=== PATIENT | female | born 1995 | race African-American/Black ===

== ENCOUNTER 2016-06-29 19:45 | Emergency (ER) | payer MEDICAID ==
[2016-06-29 19:51] VITALS: BP 133/99; TEMP 98.8
[2016-06-29] MEDS ORDERED: LORazepam 1 MG TAB PO ONE (20:02)
[2016-06-29] MEDS ORDERED: HYOSCYAMINE SULFATE 0.125 MG TAB PO ONE (20:03)
[2016-06-29] MEDS ORDERED: LIDOCAINE 2% VISCOUS 15 ML UDCUP PO ONE (20:03)
[2016-06-29] MEDS ORDERED: MAG HYDROX/AL HYDROX/SIMETH 30 ML UDCUP PO ONE (20:03)
--- NOTE | 2016-06-29 20:05 | EDPHY ---
H & P Time Seen by Provider: 06/29/16 19:59 HPI/ROS: CHIEF COMPLAINT: "I took too much edibles" HISTORY OF PRESENT ILLNESS: 20-year-old female via private vehicle complaining of acute anxiety after consuming self-described "too much" edible THC. She is complaining of anxiety, palpitations, chest pain, dyspnea. Denies peripheral edema. Denies headache. Denies gait instability. Denies slurred speech. REVIEW OF SYSTEMS: A ten point review of systems was performed and is negative with the exception of the items mentioned in the HPI PAST MEDICAL & SURGICAL HISTORY: lipoprotein a SOCIAL HISTORY: positive marijuana use PHYSICAL EXAM (Prior to examination, patient consented to physical exam, hands were washed and my usual and customary physical exam procedures followed) 1) GENERAL: Well-developed, well-nourished, alert and oriented. Appears anxious 2) HEAD: Normocephalic, atraumatic 3) HEENT: Pupils equal, round, reactive to light bilaterally. Sclera anicteric. Nasopharynx, oropharynx, clear, no lesions. 4) NECK: Full range of motion, no meningeal signs. No bruit 5) LUNGS: Clear auscultation bilaterally, no wheezes, no rhonchi, no retractions. 6) HEART: Regular rate and rhythm, no murmur, no heave, no gallop. 7) ABDOMEN: No guarding, no rebound, no focal tenderness, negative McBurney's, negative Bonilla's, negative Rovsing's, negative peritoneal sign, 8) MUSCULOSKELETAL: Moving all extremities, no focal areas of tenderness, no obvious trauma. No peripheral edema or discoloration.Negative Homans no palpable cord 9) BACK: No CVA tenderness, no midline vertebral tenderness, no fluctuance, no step-off, no obvious trauma, no visual or palpable abnormality. 10) SKIN: No rash, no petechiae. 11) Psychiatric: Patient is oriented X 3, there is no agitation. DIFFERENTIAL DIAGNOSIS: in no particular include but limited to acute intoxicants use, pulmonary embolus, ND Smoking Status: Never smoked Constitutional: Initial Vital Signs Temperature (C) 37.1 C 06/29/16 19:47 Heart Rate 123 H 06/29/16 19:47 Respiratory Rate 18 06/29/16 19:47 Blood Pressure 133/99 H 06/29/16 19:47 O2 Sat (%) 98 06/29/16 19:47 O2 Delivery Mode Room Air Allergies/Adverse Reactions: acetazolamide [From Diamox Sequels] Allergy (Verified 04/27/15 01:03) egg [eggs] Allergy (Verified 04/27/15 01:03) topiramate [From Topamax] Allergy (Verified 04/27/15 01:15) Home Medications: Medication Instructions Recorded NK [No Known Home Meds] 04/27/15 MDM/Departure - MDM Diagnostics: PA and Lateral Chest X-ray 2142 hours History: Chest pain. Findings: Heart size and pulmonary vasculature are normal. The lungs are clear without infiltrates or effusions. There is no pneumothorax. The osseous structures are intact. Impression: Normal chest x-ray. Dictated By: Hebert Resendiz MD Images reviewed by myself Medications Given: Discontinued Medications Al Hydroxide/Mg Hydroxide (Maalox Susp) 30 ml PO ONCE ONE Stop: 06/29/16 20:04 Last Admin: 06/29/16 20:11 Dose: 30 ml Hyoscyamine Sulfate (Levsin, Hyomax-Sl) 0.25 mg PO ONCE ONE Stop: 06/29/16 20:04 Last Admin: 06/29/16 20:12 Dose: 0.25 mg Sodium Chloride (Ns) 1,000 mls @ 0 mls/hr IV ONCE ONE PRN Reason: Wide Open Stop: 06/29/16 20:50 Last Admin: 06/29/16 21:27 Dose: 1,000 mls Lidocaine (Lidocaine 2% Viscous) 15 ml PO ONCE ONE Stop: 06/29/16 20:04 Last Admin: 06/29/16 20:12 Dose: 15 ml Lorazepam (Ativan) 1 mg PO EDNOW ONE Stop: 06/29/16 20:03 Last Admin: 06/29/16 20:11 Dose: 1 mg Lorazepam (Ativan Injection) 1 mg IVP EDNOW ONE Stop: 06/29/16 20:50 Last Admin: 06/29/16 21:27 Dose: 1 mg ED Course/Re-evaluation: 9:40 p.m. I have spoke with the patient. At this time she states that she is feeling more, however her heart rate is remains in the 110s. She has a history of lipoprotein a factor and is supposed to be taking anticoagulant medication as she is at risk for thrombus. She has been off of anticoagulants for at least 5 years. She does complain of dyspnea and chest pain. Will obtain laboratory studies including D-dimer, EKG, chest x-ray and re-evaluate 10:30 p.m.: Re-evaluation, sleeping. 10:42 p.m. re-evaluation, sleeping, easily woken. Discussed with her her negative D-dimer, negative troponin, negative chest x-ray, normal sinus rhythm EKG. Her heart rate has decreased. She is breathing comfortably. I think that pulmonary embolus, ND, less than likely in this patient. She has a nonfocal neurologic exam with no subjective or objective neurologic deficits. Doubt CVA. I recommended caution with THC use in the future. I think her symptoms, which are now resolved, more than likely secondary to excessive THC consumption. Usual and customary discharge precautions and instructions provided. - Depart Disposition: Home, Routine, Self-Care Clinical Impression: Marijuana abuse Condition: Good Instructions: Cannabis Abuse (ED) Additional Instructions: Please be cautious with THC use in the future. Call 911 if you develop chest pain, shortness of breath or any other symptoms that concern you Referrals: GAMALIEL TO [Other] - 1 day without fail
[2016-06-29] MEDS ORDERED: LORazepam 2 MG/ML INJ IVP ONE (20:49)
[2016-06-29] MEDS ORDERED: NS 1,000 ML IV ONE (20:49)
[2016-06-29 21:50] LABS: % IMMATURE GRANULYOCYTES 0.3 % (0.0-1.1); ABSOLUTE IMMATURE GRANULOCYTES 0.02 10^3/uL (0.00-0.10); ADD DIFF? NO; ADD MORPH? NO; ADD SCAN? NO; ATYPICAL LYMPHOCYTE FLAG 0 (0-99); FRAGMENT RBC FLAG 0 (0-99); HEMATOCRIT 43.3 % (38.0-47.0); HEMOGLOBIN 15.3 g/dL (12.6-16.3); LEFT SHIFT FLG 0 (0-99); LIPEMIA HEMOLYSIS FLAG 90 (0-99); MEAN CELL HEMOGLOBIN CONCENTR. 35.3 g/dL (32.4-36.7); MEAN CELL VOLUME 99.1 fL (81.5-99.8); PLATELET CLUMPS FLAG 40 (0-99); PLATELET COUNT 174 10^3/uL (150-400); RED BLOOD CELL COUNT 4.37 10^6/uL (4.18-5.33); RED CELL DISTRIBUTION WIDTH 11.7 % (11.5-15.2)
[2016-06-29 21:56] LABS: ANION GAP 16 mEq/L (8-16); CALCIUM 9.3 mg/dL (8.5-10.4); CARBON DIOXIDE 18 mEq/l (22-31); CHLORIDE 104 mEq/L (97-110); CREATININE 0.7 mg/dL (0.6-1.0); GLOMERULAR FILTRATION RATE > 60; GLUCOSE 207 mg/dL (70-100); POTASSIUM 3.6 mEq/L (3.5-5.2); SODIUM 138 mEq/L (134-144)
--- NOTE | 2016-06-29 21:58 | CPEKG ---
Heart Rate: 109 RR Interval: 550 P-R Interval: 152 QRSD Interval: 98 QT Interval: 348 QTC Interval: 469 P [place]: 64 QRS [place]: 39 T Wave [place]: 5 EKG Severity - OTHERWISE NORMAL ECG - EKG Impression: SINUS TACHYCARDIA EKG Impression: Agree with above Electronically Signed By: Paras Hamilton 01-Jul-2016 18:15:07
[2016-06-29 22:08] LABS: TROPONIN I 0.025 ng/mL (0-0.034)
[2016-06-29 22:46] VITALS: PULSE 120; RESP 20; O2SAT 97
== END 2016-06-29 23:45 | disposition home or self-care (01) ==
DX: F12.10 Cannabis abuse, uncomplicated (principal)
CPT/HCPCS: 96374; J2060

== ENCOUNTER 2016-07-10 16:03 | Emergency (ER) | payer MEDICAID ==
[2016-07-10 16:11] VITALS: BP 128/78; PULSE 73; RESP 18; TEMP 97.7; O2SAT 98
--- NOTE | 2016-07-10 16:24 | EDPHY ---
H & P Stated Complaint: Thinks poss DVT; tingling in R LLE/R hand Time Seen by Provider: 07/10/16 16:24 - Personal History LMP (Females 10-55): 15-21 Days Ago Current Tetanus Diphtheria and Acellular Pertussis (TDAP): Yes - Medical/Surgical History Hx Asthma: No Hx Chronic Respiratory Disease: No Hx Diabetes: No Hx Cardiac Disease: No Hx Renal Disease: No Hx Cirrhosis: No Hx Alcoholism: No Hx HIV/AIDS: No Hx Splenectomy or Spleen Trauma: No Other PMH: Lipoprotein A, migraines - Social History Smoking Status: Never smoked Constitutional: Initial Vital Signs Temperature (C) 36.5 C 07/10/16 16:07 Heart Rate 73 07/10/16 16:07 Respiratory Rate 18 07/10/16 16:07 Blood Pressure 128/78 H 07/10/16 16:07 O2 Sat (%) 98 07/10/16 16:07 O2 Delivery Mode Room Air Allergies/Adverse Reactions: acetazolamide [From Diamox Sequels] Allergy (Verified 07/10/16 16:11) egg [eggs] Allergy (Verified 07/10/16 16:11) topiramate [From Topamax] Allergy (Verified 07/10/16 16:11) Home Medications: Medication Instructions Recorded NK [No Known Home Meds] 04/27/15 Medical Decision Making ED Course/Re-evaluation: CHIEF COMPLAINT: Right calf pain HISTORY OF PRESENT ILLNESS: The patient is a 20 y/o female arriving with her friend at the [facility] with concern for a clot in her right calf. She reports she was recently evaluated in the ED for heart palpitations after using marijuana edibles. Due to a history of elevated lipoprotein, she is concerned she may have a DVT. She denies chest pain or shortness of breath. She has no history of DVT or PE and denies recent travel or long sedentary periods. She has been able to walk normally and denies leg weakness or other complaints. REVIEW OF SYSTEMS: A 10 point review of systems was performed and is negative with the exception of the elements mentioned in the history of present illness. PHYSICAL EXAM: HR, BP, O2 Sat, RR. Temp noted General Appearance: Alert, well hydrated, appropriate, and non-toxic appearing. Head: Atraumatic without scalp tenderness or obvious injury Eyes: Pupils equal, round, reactive to light and accommodation, EOMI, no trauma , no injection. Ears: Clear bilaterally, no perforation, normal landmarks Nose: Atraumatic, no rhinorrhea, clear. Throat: There is no erythema or exudates, no lesions, normal tonsils, mucus membranes moist. Neck: Supple, nontender, no lymphadenopathy. Respiratory: No retractions, no distress, no wheezes, and no accessory muscle use. Lungs are clear to auscultation bilaterally. Cardiovascular: Regular rate and rhythm, no murmurs, rubs, or gallops. Dorsalis pedis pulses intact. Good capillary refill all extremities. Gastrointestinal: Abdomen is soft, nontender, non-distended, no masses, no rebound, no guarding, no peritoneal signs. Musculoskeletal: Normal active ROM of all extremities, atraumatic. Right calf shows no tenderness, erythema, tenseness, or calf asymmetry Neurological: Alert, appropriate, and interactive. The patient has normal DTRs and non-focal cranial nerves, motor, sensory, and cerebellar exam. Skin: No rashes, good turgor, no nodules on palpation. 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 [employer] student DIAGNOSTICS/PROCEDURES/CRITICAL CARE TIME: I viewed the images myself on the PACS system. DIFFERENTIAL DIAGNOSIS: The differential diagnosis for the patient's leg pain included but was not limited to hypoalbuminemia, congestive heart failure, cor pulmonale, venous stasis, trauma, and DVT. MEDICAL DECISION MAKING: This is a 20 y/o female presenting with right calf pain for the last couple days. She has an elevated lipoprotein and was told this could lead to clots, which she interpreted as increased risk of DVTs. When she discussed her symptoms with [facility], they referred her to the ED for DVT rule out. Though she describes right calf pain and swelling, on exam she has no tenderness, erythema, tenseness, or calf asymmetry making me less suspicious of a DVT. She denies any systemic symptoms and DVT or PE risk factors. Plan for US of her right lower extremity to rule out DVT. 1715: US is negative for DVT per Dr. Whelan, radiologist. I reevaluated the patient and discussed these results with her. I answered all her questions. It' s more likely her pain is due to a musculoskeletal etiology and I recommended standard care instructions including OTC NSAIDs and ice compresses. I gave strict return precautions and recommended following up with a belt polisher regarding her elevated lipoprotein as she is not currently on any medical therapy for this. She agrees with plan. Departure - Departure Disposition: Home, Routine, Self-Care Clinical Impression: Right calf pain Condition: Good Instructions: Leg Pain (ED) Additional Instructions: 1. Use ibuprofen or Tylenol as directed on the packaging if needed for pain for the next 2-3 days. You can also try applying ice or heat to sore areas. 2. Follow up with Dr. Amador, belt polisher, to discuss therapies for your elevated lipoprotein. 3. Return to the ED for chest pain, shortness of breath, dramatic increase in pain or swelling of your leg, or other worsening of condition. Referrals: GAMALIEL TO [Other] - As per Instructions Jae Amador MD [Medical Doctor] - As per Instructions Report Scribed for: Mk Florentino Report Scribed by: Kassandra Stapleton Date of Report: 07/10/16 Time of Report: 17:12
== END 2016-07-10 17:05 | disposition home or self-care (01) ==
DX: M79.604 Pain in right leg (principal)

== ENCOUNTER 2017-10-01 02:07 | Emergency (ER) | payer MEDICAID ==
[2017-10-01 02:31] VITALS: BP 127/91
--- NOTE | 2017-10-01 02:35 | EDPHY ---
H & P Stated Complaint: "I think i have a spider in my ear" Time Seen by Provider: 10/01/17 02:32 HPI/ROS: Chief Complaint: Possible spider in ear HPI: 21-year-old female woke this morning with the sensation of crackling in her ear. She thinks she may have a spider in her ear. She flushed it appy did not see any insects. She is complaining of disc sensation of fullness in her ear. She has had recent mild nasal congestion ROS: 10 point Review of Systems is negative except as noted in the HPI. PMH: Denies Social History: [No] smoking, [no] alcohol, [ no recreational drug use] Family History: [non-contributory] Physical Exam: General: Awake, alert, no acute distress Ears: Right ear contains no foreign body. There is minimal effusion. There is no erythema. There is no material in the external auditory canal. Left ear is normal. Skin: No rash - Personal History LMP (Females 10-55): 8-14 Days Ago Current Tetanus Diphtheria and Acellular Pertussis (TDAP): Yes - Medical/Surgical History Hx Asthma: No Hx Chronic Respiratory Disease: No Hx Diabetes: No Hx Cardiac Disease: No Hx Renal Disease: No Hx Cirrhosis: No Hx Alcoholism: No Hx HIV/AIDS: No Hx Splenectomy or Spleen Trauma: No Other PMH: Lipoprotein A, migraines - Social History Smoking Status: Never smoked Constitutional: Initial Vital Signs Temperature (C) 36.7 C 10/01/17 02:30 Heart Rate 89 10/01/17 02:30 Respiratory Rate 18 10/01/17 02:30 Blood Pressure 127/91 H 10/01/17 02:30 O2 Sat (%) 97 10/01/17 02:30 O2 Delivery Mode Room Air Allergies/Adverse Reactions: acetazolamide [From Diamox Sequels] Allergy (Verified 10/01/17 02:30) egg [eggs] Allergy (Verified 10/01/17 02:30) topiramate [From Topamax] Allergy (Verified 10/01/17 02:30) Home Medications: Medication Instructions Recorded NK [No Known Home Meds] 04/27/15 Departure - Departure Disposition: Home, Routine, Self-Care Clinical Impression: Ear pain Condition: Good Instructions: Earache (ED) Additional Instructions: Follow up at [facility] in 2-3 days for further evaluation. You may take [id number] decongestants to help your ears to drain. Referrals: NONE *PRIMARY CARE P,. [Primary Care Provider] - As per Instructions
== END 2017-10-01 02:52 | disposition home or self-care (01) ==
DX: H92.01 Otalgia, right ear (principal)

== ENCOUNTER 2017-11-29 17:09 | Emergency (ER) | payer MEDICAID ==
[2017-11-29] MEDS ORDERED: methylPREDNISolone SOD SUCC 125 MG/2 ML VIAL IVP ONE (17:49)
--- NOTE | 2017-11-29 17:53 | EDPHY ---
H & P Stated Complaint: Had eggs in food which she promptly spit out;used epi pen; feels itchy Time Seen by Provider: 11/29/17 17:21 HPI/ROS: CHIEF COMPLAINT: Allergic reaction HISTORY OF PRESENT ILLNESS: 22-year-old female with known severe egg allergy presents with an allergic reaction. She placed food from a restaurant in her mouth, realized that it was not her food order, and spit it out. Did not swallow the food, which was cheesecake (containing eggs). Immediate onset of generalized hives and a tingling sensation in her throat and tongue. She took Benadryl 25 mg orally and then used her EpiPen. She continues to have tingling in her throat and tongue. The hives are resolving. No dizziness or shortness of breath. REVIEW OF SYSTEMS: complete 10 point ROS negative except at noted in the HPI - Personal History Current Tetanus Diphtheria and Acellular Pertussis (TDAP): Yes - Medical/Surgical History Hx Asthma: No Hx Chronic Respiratory Disease: No Hx Diabetes: No Hx Cardiac Disease: No Hx Renal Disease: No Hx Cirrhosis: No Hx Alcoholism: No Hx HIV/AIDS: No Hx Splenectomy or Spleen Trauma: No Other PMH: Lipoprotein A, migraines, - Social History Smoking Status: Never smoked Additional Social History: Single - Physical Exam Exam: General Appearance: Alert, pleasant Eyes: Pupils equal and round, no periorbital swelling ENT, Mouth: Mucous membranes moist, no oral swelling or erythema Neck: Normal inspection, no stridor Respiratory: Lungs are clear to auscultation, no wheezing Cardiovascular: Regular rate and rhythm Neurological: A&O, nonfocal, normal gait Skin: Scattered hives Extremities: No swelling Psychiatric: Mood and affect normal Constitutional: Initial Vital Signs Temperature (C) 36.7 C 11/29/17 17:15 Heart Rate 94 11/29/17 17:15 Respiratory Rate 18 11/29/17 17:15 Blood Pressure 136/81 H 11/29/17 17:15 O2 Sat (%) 96 11/29/17 17:15 O2 Delivery Mode Room Air Allergies/Adverse Reactions: egg [eggs] Allergy (Intermediate, Verified 11/29/17 17:14) Hives acetazolamide [From Diamox Sequels] Allergy (Verified 11/09/17 18:41) cheese Allergy (Verified 11/09/17 18:41) topiramate [From Topamax] Allergy (Verified 11/09/17 18:41) Home Medications: Medication Instructions Recorded Effexor Xr 11/09/17 Epipen 0.3 MG 11/09/17 EPINEPHrine [Epipen 0.3 MG] 0.3 mg IM ONCE #2 syr 11/29/17 predniSONE 60 mg PO DAILY #9 tab 11/29/17 Medical Decision Making ED Course/Re-evaluation: This pt presents with anaphylaxis, symptoms resolving after EpiPen and Benadryl. However she continues to have tingling in her throat and tongue. Solu-Medrol 125 mg IV given. Will observe. 1830: Feels much better, wants to go home. Itching and tingling have resolved. Lungs are clear to auscultation and vital signs are stable. Warning signs discussed. Differential Diagnosis: Differential diagnosis includes though it is not limited to laryngeal edema, bronchospasm, hypotension, angioedema. - Data Points Medications Given: Discontinued Medications Methylprednisolone Sodium Succinate (Solu-Medrol) 125 mg IVP EDNOW ONE Stop: 11/29/17 17:50 Last Admin: 11/29/17 18:02 Dose: 125 mg Departure - Departure Disposition: Home, Routine, Self-Care Clinical Impression: Acute anaphylaxis Qualifiers: Encounter type: initial encounter Qualified Code(s): T78.2XXA - Anaphylactic shock, unspecified, initial encounter Condition: Good Instructions: Anaphylaxis (ED) Additional Instructions: Take Claritin in the morning and Benadryl at night for 3 days. Referrals: Shaila Early MD [Medical Doctor] - As per Instructions Prescriptions: EPINEPHrine [Epipen 0.3 MG] 0.3 mg IM ONCE #2 syr predniSONE 60 mg PO DAILY #9 tab
[2017-11-29 18:46] VITALS: BP 113/74
== END 2017-11-29 18:46 | disposition home or self-care (01) ==
DX: T78.08XA Anaphylactic reaction due to eggs, initial encounter (principal)
CPT/HCPCS: 96374; J2930

== ENCOUNTER 2018-01-16 00:48 | Emergency (ER) | payer MEDICAID ==
[2018-01-16] MEDS ORDERED: ONDANSETRON 4 MG/2 ML VIAL IVP ONE (00:50)
[2018-01-16] MEDS ORDERED: NS 1,000 ML IV ONE (00:50)
--- NOTE | 2018-01-16 00:52 | EDPHY ---
H & P Time Seen by Provider: 01/16/18 00:51 HPI/ROS: HPI CHIEF COMPLAINT: Alcohol Intoxication HISTORY OF PRESENT ILLNESS: 22-year-old female, history of migraine headaches, presents emergency room acute alcohol intoxication, as well as marijuana intoxication. Patient was at a constitution party. Started vomiting. Unable to ambulate. Presents emergency room by EMS. Smells of alcohol. Slurring her speech. States she feels nauseous. Past Medical History: Anxiety, depression, migraine headaches Past Surgical History: Denies Social History: Alcohol this evening. Marijuana this evening. Family History: Noncontributory. ROS REVIEW OF SYSTEMS: 10 Systems were reviewed and negative with the exception of the elements mentioned in the history of present illness. Exam Constitutional Intoxicated, triage nursing summary reviewed, vital signs reviewed, Sleepy, smells of alcohol Eyes normal conjunctivae and sclera, horizontal beating nystagmus consistent acute alcohol intoxication, otherwise pupils equal and react to light HENT normal inspection, atraumatic, moist mucus membranes, no epistaxis, neck supple/ no meningismus, no raccoon eyes. Respiratory clear to auscultation bilaterally, normal breath sounds, no respiratory distress, no wheezing. Cardiovascular rate normal, regular rhythm, no murmur, no edema, distal pulses normal. Gastrointestinal soft, non-tender, no rebound, no guarding, normal bowel sounds, no distension, no pulsatile mass. Genitourinary no CVA tenderness. Musculoskeletal no midline vertebral tenderness, full range of motion, no calf swelling, no tenderness of extremities, no meningismus, good pulses, neurovascularly intact. Skin pink, warm, & dry, no rash, skin atraumatic. Neurologic sleepy, intoxicated with alcohol,, alert and oriented x 3, AAOx3, moves all 4 extremities equally, motor intact, sensory intact, CN II-XII intact , , normal vision, normal speech. Psychiatric normal mood/affect. Heme/Lymph/Immune no lymphadenopathy. Differential Diagnosis: Includes but is not limited to in a particular order acute alcohol intoxication, alcohol abuse, dehydration, electrolyte abnormality , nausea vomiting from acute alcohol intoxication Medical Decision Making: Plan for this patient IV establishment IV fluid bolus , Zofran for nausea vomiting, check basic electrolytes, serum alcohol level. Monitor for worsening condition monitor for sobriety. Re-evaluation: Serum alcohol level 156. 0724: Patient was highly intoxicated with alcohol. She is now clinically sober. Answers questions appropriately acting appropriately. Plan for discharge. Ambulated well. No complaints. Source: Patient, EMS - Medical/Surgical History Hx Asthma: No Hx Chronic Respiratory Disease: No Hx Diabetes: No Hx Cardiac Disease: No Hx Renal Disease: No Hx Cirrhosis: No Hx Alcoholism: No Hx HIV/AIDS: No Hx Splenectomy or Spleen Trauma: No Other PMH: Lipoprotein A, migraines, - Social History Smoking Status: Never smoked Constitutional: Initial Vital Signs Temperature (C) 36.4 C 01/16/18 00:49 Heart Rate 90 01/16/18 00:49 Respiratory Rate 16 01/16/18 00:49 Blood Pressure 115/74 01/16/18 00:49 O2 Sat (%) 100 01/16/18 00:49 O2 Delivery Mode Room Air Allergies/Adverse Reactions: egg [eggs] Allergy (Intermediate, Verified 11/29/17 17:14) Hives acetazolamide [From Diamox Sequels] Allergy (Verified 11/09/17 18:41) cheese Allergy (Verified 11/09/17 18:41) topiramate [From Topamax] Allergy (Verified 11/09/17 18:41) Home Medications: Medication Instructions Recorded Effexor Xr 11/09/17 Epipen 0.3 MG 11/09/17 EPINEPHrine [Epipen 0.3 MG] 0.3 mg IM ONCE #2 syr 11/29/17 predniSONE 60 mg PO DAILY #9 tab 11/29/17 Medical Decision Making - Data Points Laboratory Results: Laboratory Results 01/16/18 01:03 01/16/18 01:50 01/16/18 01/16/18 01/16/18 01:50 01:50 01:03 WBC RBC Hgb Hct MCV MCH MCHC RDW Plt Count MPV Neut % (Auto) Lymph % (Auto) [place] % (Auto) Eos % (Auto) Baso % (Auto) Nucleat RBC Rel Count Absolute Neuts (auto) Absolute Lymphs (auto) Absolute Monos (auto) Absolute Eos (auto) Absolute Basos (auto) Absolute Nucleated RBC Immature Gran % Immature Gran # Sodium 141 mEq/L mEq/L 142 mEq/L mEq/L (135-145) (135-145) Potassium 3.4 mEq/L mEq/L 2.9 mEq/L L mEq/L (3.3-5.0) (3.3-5.0) Chloride 111 mEq/L H mEq/L 107 mEq/L mEq/L (97-110) (97-110) Carbon Dioxide 18 mEq/l L mEq/l 17 mEq/l L mEq/l (22-31) (22-31) Anion Gap 12 mEq/L mEq/L 18 mEq/L H mEq/L (6-14) (6-14) BUN 7 mg/dL mg/dL 8 mg/dL mg/dL (7-23) (7-23) Creatinine 0.6 mg/dL mg/dL 0.8 mg/dL mg/dL (0.6-1.0) (0.6-1.0) Estimated GFR > 60 > 60 Glucose 104 mg/dL H mg/dL 126 mg/dL H mg/dL (70-100) (70-100) Calcium 8.4 mg/dL L mg/dL 9.5 mg/dL mg/dL (8.5-10.4) (8.5-10.4) Urine Color YELLOW Urine Appearance HAZY Urine pH 5.0 (5.0-7.5) Ur Specific [place] 1.016 (1.002-1.030) Urine Protein NEGATIVE (NEGATIVE) Urine Ketones TRACE H (NEGATIVE) Urine Blood NEGATIVE (NEGATIVE) Urine Nitrate NEGATIVE (NEGATIVE) Urine Bilirubin NEGATIVE (NEGATIVE) Urine Urobilinogen NEGATIVE EU EU (0.2-1.0) Ur Leukocyte Esterase NEGATIVE (NEGATIVE) Urine Glucose NEGATIVE (NEGATIVE) Ethyl Alcohol 156 mg/dL H mg/dL (0-10) 01/16/18 01:03 WBC 6.57 10^3/uL 10^3/uL (3.80-9.50) RBC 4.15 10^6/uL L 10^6/uL (4.18-5.33) Hgb 14.7 g/dL g/dL (12.6-16.3) Hct 41.9 % % (38.0-47.0) MCV 101.0 fL H fL (81.5-99.8) MCH 35.4 pg H pg (27.9-34.1) MCHC 35.1 g/dL g/dL (32.4-36.7) RDW 11.9 % % (11.5-15.2) Plt Count 181 10^3/uL 10^3/uL (150-400) MPV 11.1 fL fL (8.7-11.7) Neut % (Auto) 28.6 % L % (39.3-74.2) Lymph % (Auto) 60.1 % H % (15.0-45.0) [place] % (Auto) 9.3 % % (4.5-13.0) Eos % (Auto) 1.2 % % (0.6-7.6) Baso % (Auto) 0.5 % % (0.3-1.7) Nucleat RBC Rel Count 0.0 % % (0.0-0.2) Absolute Neuts (auto) 1.88 10^3/uL 10^3/uL (1.70-6.50) Absolute Lymphs (auto) 3.95 10^3/uL H 10^3/uL (1.00-3.00) Absolute Monos (auto) 0.61 10^3/uL 10^3/uL (0.30-0.80) Absolute Eos (auto) 0.08 10^3/uL 10^3/uL (0.03-0.40) Absolute Basos (auto) 0.03 10^3/uL 10^3/uL (0.02-0.10) Absolute Nucleated RBC 0.00 10^3/uL 10^3/uL (0-0.01) Immature Gran % 0.3 % % (0.0-1.1) Immature Gran # 0.02 10^3/uL 10^3/uL (0.00-0.10) Sodium Potassium Chloride Carbon Dioxide Anion Gap BUN Creatinine Estimated GFR Glucose Calcium Urine Color Urine Appearance Urine pH Ur Specific [place] Urine Protein Urine Ketones Urine Blood Urine Nitrate Urine Bilirubin Urine Urobilinogen Ur Leukocyte Esterase Urine Glucose Ethyl Alcohol Medications Given: Discontinued Medications Haloperidol Lactate (Haldol Injection) 2.5 mg IVP EDNOW ONE Stop: 01/16/18 01:21 Last Admin: 01/16/18 01:21 Dose: 2.5 mg Sodium Chloride (Ns) 1,000 mls @ 0 mls/hr IV EDNOW ONE; Wide Open PRN Reason: Protocol Stop: 01/16/18 00:51 Last Admin: 01/16/18 00:59 Dose: 1,000 mls Lorazepam (Ativan Injection) 1 mg IVP EDNOW ONE Stop: 01/16/18 02:56 Last Admin: 01/16/18 02:55 Dose: 1 mg Ondansetron HCl (Zofran) 4 mg IVP EDNOW ONE Stop: 01/16/18 00:51 Last Admin: 01/16/18 01:00 Dose: 4 mg Departure - Departure Disposition: Home, Routine, Self-Care Clinical Impression: Alcoholic intoxication Qualifiers: Complication of substance-induced condition: uncomplicated Qualified Code(s): F10.920 - Alcohol use, unspecified with intoxication, uncomplicated Condition: Good Instructions: Alcohol Intoxication (ED), Abuse of Alcohol (ED) Referrals: Patient,NotPresent [Unknown] - As per Instructions
[2018-01-16 01:12] LABS: PLATELET COUNT 181 10^3/uL (150-400)
[2018-01-16] MEDS ORDERED: HALOPERIDOL LACT 5 MG/ML INJ ONE (01:18)
[2018-01-16] MEDS ORDERED: HALOPERIDOL LACT 5 MG/ML INJ IVP ONE (01:20)
[2018-01-16] MEDS ORDERED: LORazepam 2 MG/ML INJ ONE (02:54)
[2018-01-16] MEDS ORDERED: LORazepam 2 MG/ML INJ IVP ONE (02:55)
[2018-01-16 07:37] VITALS: BP 111/66
== END 2018-01-16 08:04 | disposition home or self-care (01) ==
LOC: EDUNIT#
DX: F10.920 Alcohol use, unspecified with intoxication, uncomplicated (principal); Y90.6 Blood alcohol level of 120-199 mg/100 ml; E86.9 Volume depletion, unspecified
CPT/HCPCS: 96374; G0480; J1630; J2060; J2405

== ENCOUNTER 2018-05-11 17:28 | Emergency (ER) | payer MEDICAID ==
--- NOTE | 2018-05-11 17:58 | EDPHY ---
General - History Smoking Status: Never smoked Time Seen by Provider: 05/11/18 17:58 Narrative: CLINICAL IMPRESSION: Nausea, vomiting, right lower quadrant pain ASSESSMENT/PLAN: Patient is a 22-year-old female with a significant history of depression who presents to the emergency department with 8 days of nausea, generalized abdominal pain now localizing to the right lower quadrant and a single episode of emesis today. Patient is afebrile, she is in no acute distress and not toxic -appearing. Her abdomen was soft and nondistended, generalized lower abdominal tenderness to palpation however most tender in the right lower quadrant. CBC revealed no evidence of leukocytosis. Her vital signs were reviewed and there was no evidence of sepsis or serious bacterial illness. BMP grossly unremarkable. Lipase and hepatic panel without evidence of acute pancreatitis, acute hepatitis or acute hepatobiliary obstruction. negative. Pelvic ultrasound and abdominal ultrasound revealed no evidence of cystic mass, TOA or torsion; unable to visualize the appendix. UA without evidence of infection. CT abdomen and pelvis revealed normal appendix, complex trace fluid in the pelvis possibly resultant of recent ruptured ovarian cyst; no other acute findings. History and physical examination is most consistent with right lower quadrant pain, query recent ruptured ovarian cyst as etiology. There were no clinical findings to suggest appendicitis, cholecystitis, kidney stone, pancreatitis, pyelonephritis, perforated viscus, diverticulitis, hernia, AAA, mesenteric ischemia, or additional emergent intra-abdominal process. negative rules out ectopic . No pelvic complaints to suggest TOA, PID or ovarian torsion. She was given IV fluids and Toradol with improvement of her symptoms. On repeat examination the patient is well-appearing, her abdomen was soft with mild tenderness to palpation in the right lower quadrant, no peritoneal signs or evidence of surgical abdomen. The patient is well established at [facility] and understands the importance of close follow-up. Strict return precautions discussed- she will return for increased or unmanageable pain, new site or character of pain, fever, persistent nausea and vomiting, decreased urine output or other signs of dehydration or for any other new, worsening or worrisome symptoms. Patient and her mother both verbalized understanding and they are in agreement with this plan. DIFFERENTIAL DX: Abdominal pain in a female including but not limited to ovarian cyst, pelvic inflammatory disease, ovarian torsion, urinary tract infection, and appendicitis. ED COURSE: 1905: Case discussed with Dr. Membreno. CHIEF COMPLAINT: Nausea, vomiting, right lower quadrant pain HPI: Patient is a 22-year-old female with significant history of depression who presents to the emergency department with 8 days of nausea, generalized abdominal pain which is localized to the right lower quadrant as well as a single episode of emesis today. Patient reports last Thursday she started to develop some generalized abdominal pain and nausea, it was constant and nothing relieved it. She was seen and evaluated at [facility] on Thursday, baseline laboratory studies reportedly unremarkable. Patient has continued to have abdominal pain which is now localizing to the right lower quadrant and had a single episode of emesis today. She has also been experiencing intermittent night sweats and chills. She has been taking her Zofran intermittently, complains of mild constipation however had a normal bowel movement this morning. She denies any chest pain, shortness of breath or hematemesis. Last menstrual period was normal in approximately 3 weeks ago. She is sexually active however it has been several months, 1 partner. No concern for STI, denies any vaginal discharge or vaginal bleeding at this time. She denies any urinary symptoms to include dysuria, hematuria or frequency. PMH: Depression Pertinent Past Surgical History: Denies Family History: Noncontributory Social History: Denies illicit drug use, occasional alcohol, denies cigarette smoking REVIEW OF SYSTEMS: All other systems negative Constitutional: Chills, decreased appetite. Eyes: No discharge, vision change ENT: No sore throat, congestion, ear pain. Cardiovascular: No chest pain, no palpitations. Respiratory: No cough, no shortness of breath. Gastrointestinal: Nausea, vomiting, right lower quadrant pain. Genitourinary: No hematuria, dysuria, flank pain. Musculoskeletal: No back pain, joint swelling, joint pain, myalgias. Skin: No rashes, color change. Neurological: No headache, dizziness, weakness. PHYSICAL EXAM: General Appearance: Well-developed, no acute distress and not toxic-appearing. HENT: Normocephalic, atraumatic. Bilateral external ears are normal. Bilateral tympanic membranes are normal with pearly oleary reflex. Nares are clear, mucosa is pink. Oropharynx is clear, uvula is midline. There is no tonsillar enlargement or exudate. The dentition is normal.] Eyes: PERRLA, no acute vision change, nystagmus, swelling, discharge, pain or photosensitivity. Conjunctiva pink, no pallor or injection Neck: Supple, nontender, no lymphadenopathy, no midline pain, FROM, no meningismus. Respiratory: There are no retractions, lungs are clear to auscultation. Cardiac: Regular rate and rhythm, no murmurs or gallops. Gastrointestinal: Patient's abdomen is soft and nondistended. She has generalized lower abdominal tenderness however is most tender in the right lower quadrant without rebound or guarding. Negative Rovsing's, negative Bonilla sign. Bowel sounds normal, no masses/hernia, no focal peritoneal findings.] Neurological: Alert and oriented x 3, CN 2-12 grossly intact, normal gait no ataxia, DTR's intact, normal sensation and strength Skin: Warm, dry, no rashes, no nodules on palpation. Musculoskeletal: Extremities are symmetrical, full range of motion, no tenderness, deformity, swelling, or erythema. Psychiatric: Patient is oriented X 3, there is no agitation. MEDICAL DECISION MAKING: Patient was seen independently. Secondary supervising physician at time of evaluation was Dr. Membreno, she did not evaluate this patient. Diagnosis: Nausea, vomiting, right lower quadrant pain. New, requires workup Summary: See Assessment and Plan for summary of ED visit Clinical lab tests: ordered / reviewed. Independent visualization of images, tracing, or specimens: Yes. Decision to obtain medical records or history from someone other than the patient: Yes Review / Summarize previous medical records: Yes Discussed patient with another provider: Yes Patient Progress: Stable, discharge. (Josee Li) - Diagnostics Imaging Results: Imaging Impressions Abdomen Ultrasound 05/11/18 18:18 Impression: 1. There is a loop of bowel within the right lower quadrant measuring up to 1.2 cm. On some images, it appears to be blind ending, though it is unclear if this represents an appendix as a connection to cecum could not be found. Correlation with physical examination and laboratory values recommended. 2. Small amount of free fluid in the pelvis. Otherwise, unremarkable pelvic ultrasound. Findings and recommendations discussed with CHRISTOPHE Dickens at 4 hour, 05/11. Pelvic/Renal Ultrasound 05/11/18 18:18 Impression: 1. There is a loop of bowel within the right lower quadrant measuring up to 1.2 cm. On some images, it appears to be blind ending, though it is unclear if this represents an appendix as a connection to cecum could not be found. Correlation with physical examination and laboratory values recommended. 2. Small amount of free fluid in the pelvis. Otherwise, unremarkable pelvic ultrasound. Findings and recommendations discussed with CHRISTOPHE Dickens at 1944 hour, 05/11. Abdomen CT 05/11/18 19:44 Impression: 1. No evidence of acute appendicitis. 2. Mildly complex trace fluid within the pelvis, possibly related to a ruptured cyst or physiologic. 3. Endometrial thickening, as can be seen with menstruation. Findings and recommendations discussed with CHRISTOPHE Dickens at 2020 hour, 05/11. Discussion: The patient was evaluated and managed by the Physician Petrologist. I discussed the patient's presentation and course with the midlevel provider with them and agree with the evaluation. My co-signature indicates that I have reviewed this chart and I agree with the findings and plan of care as documented. I am the secondary supervising physician. (Angela Membreno) - Objective Vital Signs: Initial Vital Signs Temperature (C) 36.8 C 05/11/18 17:36 Heart Rate 87 05/11/18 17:36 Respiratory Rate 16 05/11/18 17:36 Blood Pressure 119/64 05/11/18 17:36 O2 Sat (%) 98 05/11/18 17:36 O2 Delivery Mode Room Air Allergies/Adverse Reactions: egg [eggs] Allergy (Intermediate, Verified 05/11/18 17:35) Hives acetazolamide [From Diamox Sequels] Allergy (Verified 05/11/18 17:35) cheese Allergy (Verified 05/11/18 17:35) topiramate [From Topamax] Allergy (Verified 05/11/18 17:35) Home Medications: Medication Instructions Recorded Effexor Xr 11/09/17 Epipen 0.3 MG 11/09/17 EPINEPHrine [Epipen 0.3 MG] 0.3 mg IM ONCE #2 syr 11/29/17 predniSONE 60 mg PO DAILY #9 tab 11/29/17 Laboratory Results: Laboratory Results 05/11/18 18:05 05/11/18 18:05 05/11/18 05/11/18 05/11/18 19:30 18:05 18:05 WBC RBC Hgb Hct MCV MCH MCHC RDW Plt Count MPV Neut % (Auto) Lymph % (Auto) [place] % (Auto) Eos % (Auto) Baso % (Auto) Nucleat RBC Rel Count Absolute Neuts (auto) Absolute Lymphs (auto) Absolute Monos (auto) Absolute Eos (auto) Absolute Basos (auto) Absolute Nucleated RBC Immature Gran % Immature Gran # Sodium 140 mEq/L mEq/L (135-145) Potassium 3.9 mEq/L mEq/L (3.5-5.2) Chloride 105 mEq/L mEq/L (97-110) Carbon Dioxide 25 mEq/l mEq/l (22-31) Anion Gap 10 mEq/L mEq/L (6-14) BUN 8 mg/dL mg/dL (7-23) Creatinine 0.7 mg/dL mg/dL (0.6-1.0) Estimated GFR > 60 Glucose 69 mg/dL L mg/dL (70-100) Calcium 9.6 mg/dL mg/dL (8.5-10.4) Total Bilirubin 0.5 mg/dL mg/dL (0.1-1.4) Conjugated Bilirubin 0.2 mg/dL mg/dL (0.0-0.5) Unconjugated Bilirubin 0.3 mg/dL mg/dL (0.0-1.1) AST 27 IU/L IU/L (14-46) ALT 20 IU/L IU/L (9-52) Alkaline Phosphatase 55 IU/L IU/L (38-126) Total Protein 7.7 g/dL g/dL (6.3-8.2) Albumin 5.0 g/dL g/dL (3.5-5.0) Lipase 129 IU/L IU/L (23-300) Beta HCG, Qual NEGATIVE Urine RBC NONE SEEN /hpf /hpf (0-3) Urine WBC 1-3 /hpf /hpf (0-3) Ur Epithelial Cells TRACE /lpf /lpf (NONE-1+) Urine Mucus TRACE /lpf /lpf (NONE-1+) 05/11/18 18:05 WBC 4.54 10^3/uL 10^3/uL (3.80-9.50) RBC 4.70 10^6/uL 10^6/uL (4.18-5.33) Hgb 16.1 g/dL g/dL (12.6-16.3) Hct 46.7 % % (38.0-47.0) MCV 99.4 fL fL (81.5-99.8) MCH 34.3 pg H pg (27.9-34.1) MCHC 34.5 g/dL g/dL (32.4-36.7) RDW 12.3 % % (11.5-15.2) Plt Count 181 10^3/uL 10^3/uL (150-400) MPV 10.9 fL fL (8.7-11.7) Neut % (Auto) 78.7 % H % (39.3-74.2) Lymph % (Auto) 16.3 % % (15.0-45.0) [place] % (Auto) 4.2 % L % (4.5-13.0) Eos % (Auto) 0.4 % L % (0.6-7.6) Baso % (Auto) 0.2 % L % (0.3-1.7) Nucleat RBC Rel Count 0.0 % % (0.0-0.2) Absolute Neuts (auto) 3.57 10^3/uL 10^3/uL (1.70-6.50) Absolute Lymphs (auto) 0.74 10^3/uL L 10^3/uL (1.00-3.00) Absolute Monos (auto) 0.19 10^3/uL L 10^3/uL (0.30-0.80) Absolute Eos (auto) 0.02 10^3/uL L 10^3/uL (0.03-0.40) Absolute Basos (auto) 0.01 10^3/uL L 10^3/uL (0.02-0.10) Absolute Nucleated RBC 0.00 10^3/uL 10^3/uL (0-0.01) Immature Gran % 0.2 % % (0.0-1.1) Immature Gran # 0.01 10^3/uL 10^3/uL (0.00-0.10) Sodium Potassium Chloride Carbon Dioxide Anion Gap BUN Creatinine Estimated GFR Glucose Calcium Total Bilirubin Conjugated Bilirubin Unconjugated Bilirubin AST ALT Alkaline Phosphatase Total Protein Albumin Lipase Beta HCG, Qual Urine RBC Urine WBC Ur Epithelial Cells Urine Mucus Medications Given: Discontinued Medications Sodium Chloride (Ns) 1,000 mls @ 0 mls/hr IV EDNOW ONE; Wide Open PRN Reason: Protocol Stop: 05/11/18 18:19 Last Admin: 05/11/18 18:47 Dose: 1,000 mls Ketorolac Tromethamine (Toradol) 30 mg IVP EDNOW ONE Stop: 05/11/18 21:08 Last Admin: 05/11/18 21:14 Dose: 30 mg Ondansetron HCl (Zofran) 4 mg IVP EDNOW ONE Stop: 05/11/18 18:19 Last Admin: 05/11/18 18:48 Dose: 4 mg Departure - Departure Disposition: Home, Routine, Self-Care Clinical Impression: RLQ abdominal pain Condition: Good Instructions: Abdominal Pain (ED) Additional Instructions: DISCHARGE INSTRUCTIONS FROM YOUR DOCTOR Thank you for visiting our emergency department today. Please keep in mind that discharge from the emergency department does not mean that there is nothing wrong - it simply means that we have not identified an emergency condition that requires further evaluation or treatment in the hospital. You should always plan to follow up with primary care for re-evaluation of your condition in the next 2-3 days. Rest, push non-diuretic, non-caffeinated fluids, clear liquid diet, then a BRAT diet (bananas, rice, applesauce, toast), then slowly advance diet to normal. Attempt small frequent meals. Zofran as prescribed as needed for any recurrent nausea and/or vomiting. For pain control: You may take Tylenol, I recommend 500-1000 mg every 6-8 hours as needed. Take with food and a full glass of water. Stop taking if this is upsetting her stomach. Do not exceed 4000 mg in a 24 hr period. You may also take ibuprofen, recommend 400 mg every 6 hr. Take with food and a full glass of water. Stop taking if this upsets her stomach. Do not exceed 2400 mg in a 24 hr period. Do not take any of these type medications until tomorrow as he received Toradol in the emergency department. Schedule a follow-up appointment with your primary care physician in the next 1- 2 days for re-evaluation. Bring a copy of your test results with you to that appointment. Return for increased or unmanageable pain, new site or character of pain, flank pain, groin pain, pelvic pain, development of fever, chills, recurrent vomiting , vomiting blood or coffee grounds, diarrhea, constipation, bloody stools, black tarry stools, burning or pain with urination, bloody urine, inability to urinate, decreased urine output or other signs of dehydration, dizziness, weakness, fainting, difficulty breathing or swallowing, chest pain, or for any other new, worsening or worrisome symptoms. People present with illnesses and injuries in different ways, and it is always possible that we have missed something. You may always return for re-evaluation if symptoms worsen or if they are not improving or if you develop new/different symptoms. Again, thank you for choosing our emergency department. We hope that you feel better. Referrals: NONE *PRIMARY CARE P,. [Primary Care Provider] - 1-2 days without fail (Please follow-up at [facility])
[2018-05-11] MEDS ORDERED: NS 1,000 ML IV ONE (18:18)
[2018-05-11] MEDS ORDERED: ONDANSETRON 4 MG/2 ML VIAL IVP ONE (18:18)
[2018-05-11 18:30] LABS: PLATELET COUNT 181 10^3/uL (150-400)
[2018-05-11] MEDS ORDERED: IOHEXOL 300 mgI/ML (OMNIPAQUE) 150 ML BTL IV ONE (19:48)
[2018-05-11] MEDS ORDERED: KETOROLAC 30 MG/1 ML SDV IVP ONE (21:07)
[2018-05-11 21:36] VITALS: BP 134/84
== END 2018-05-11 21:37 | disposition home or self-care (01) ==
DX: R10.31 Right lower quadrant pain (principal); R11.2 Nausea with vomiting, unspecified; F32.9 Major depressive disorder, single episode, unspecified
CPT/HCPCS: 96374; J1885; J2405; Q9967

== ENCOUNTER 2018-05-24 09:45 | Emergency (ER) | payer MEDICAID ==
--- NOTE | 2018-05-24 09:54 | EDPHY ---
H & P Stated Complaint: abd pain Time Seen by Provider: 05/24/18 09:54 - Personal History LMP (Females 10-55): 1-7 Days Ago - Medical/Surgical History Hx Asthma: No Hx Chronic Respiratory Disease: No Hx Diabetes: No Hx Cardiac Disease: No Hx Renal Disease: No Hx Cirrhosis: No Hx Alcoholism: No Hx HIV/AIDS: No Hx Splenectomy or Spleen Trauma: No Other PMH: Lipoprotein A, migraines, ovarian cysts - Social History Smoking Status: Never smoked Constitutional: Initial Vital Signs Temperature (C) 37.2 C 05/24/18 09:50 Heart Rate 75 05/24/18 09:50 Respiratory Rate 16 05/24/18 09:50 Blood Pressure 125/80 H 05/24/18 09:50 O2 Sat (%) 99 05/24/18 09:50 O2 Delivery Mode Room Air Allergies/Adverse Reactions: egg [eggs] Allergy (Intermediate, Verified 05/24/18 09:50) Hives acetazolamide [From Diamox Sequels] Allergy (Verified 05/24/18 09:50) cheese Allergy (Verified 05/24/18 09:50) topiramate [From Topamax] Allergy (Verified 05/24/18 09:50) Home Medications: Medication Instructions Recorded Effexor Xr 11/09/17 Epipen 0.3 MG 11/09/17 EPINEPHrine [Epipen 0.3 MG] 0.3 mg IM ONCE #2 syr 11/29/17 predniSONE 60 mg PO DAILY #9 tab 11/29/17 Ondansetron Odt [Zofran Odt 4 mg 4 mg PO Q4 PRN #10 tab 05/24/18 (*)] Medical Decision Making - Diagnostics Imaging Results: Imaging Impressions Abdomen Ultrasound 05/24/18 10:01 Impression: Normal study. Findings were discussed with Mk Florentino MD at 10:51, on 05/24/2018. Imaging: Discussed imaging studies w/ call out clerk Radiologist, I viewed and interpreted images myself ED Course/Re-evaluation: CHIEF COMPLAINT: Abdominal discomfort HISTORY OF PRESENT ILLNESS: The patient is a 22 y/o female with a history of a ruptured ovarian cyst complaining of diffuse abdominal discomfort and nausea onset several days ago. Around 1 month ago she developed a sharp abdominal pain and was diagnosed with a ruptured ovarian cyst. After having her menstrual cycle the sharp abdominal pain improved. However, several days ago she developed the diffuse abdominal discomfort. This pain does not feel like the prior episode of a ruptured ovarian cyst. In addition to the discomfort she has felt mildly lightheaded and short of breath. These symptoms worsen when she is eating. She has been doing more abdominal workouts lately as she is training for the . She denies history of an ulcer or gastritis. She denies drinking excessive alcohol or eating spicy foods. No fever, headache, chest pain, heart palpitations, cough, urinary or bowel complaints, numbness, paresthesias. REVIEW OF SYSTEMS: A comprehensive 10 system review of systems is otherwise negative aside from elements mentioned in the history of present illness and medical decision making. PHYSICAL EXAM: HR, BP, O2 Sat, RR. Temp noted General Appearance: Alert, well hydrated, appropriate, and non-toxic appearing. Head: Atraumatic without scalp tenderness or obvious injury Eyes: Pupils equal, round, reactive to light and accommodation, EOMI, no trauma , no injection. Ears: Clear bilaterally, no perforation, normal landmarks Nose: Atraumatic, no rhinorrhea, clear. Throat: There is no erythema or exudates, no lesions, normal tonsils, mucus membranes moist. Neck: Supple, 2+ carotid upstroke, nontender, no lymphadenopathy. Respiratory: No retractions, no distress, no wheezes, and no accessory muscle use. Lungs are clear to auscultation bilaterally. Cardiovascular: Regular rate and rhythm, no murmurs, rubs, or gallops. Bilateral carotid, radial, dorsalis pedis, and posterior tibial pulses intact. Good capillary refill all extremities. Gastrointestinal: Positive Bonilla's sign with diffuse mild abdominal tenderness. Abdomen is soft, non-distended, no masses, no rebound, no guarding, no peritoneal signs. Musculoskeletal: Normal active ROM of all extremities, atraumatic. Neurological: Alert, appropriate, and interactive. The patient has normal DTRs and non-focal cranial nerves, motor, sensory, and cerebellar exam. Skin: No rashes, good turgor, no nodules on palpation. Past medical history: Ovarian cyst, migraines Past surgical history: Denies Family history: Denies Social history: Single, student at , lives in [place] DIAGNOSTICS/PROCEDURES/CRITICAL CARE TIME: Abdominal US: No acute findings. DIFFERENTIAL DIAGNOSIS: The differential diagnosis for the patient's abdominal pain included but was not limited to ovarian cyst, pelvic inflammatory disease, ovarian torsion, urinary tract infection, ectopic , cholecystitis, and appendicitis. MEDICAL DECISION MAKING: The patient is a 22 y/o female with a history of a ruptured ovarian cyst presenting with diffuse abdominal discomfort and nausea onset several days ago. These symptoms are not similar to a prior ovarian cyst rupture. On exam she has a positive Bonilla's sign with diffuse mild abdominal tenderness. Labs and abdominal US ordered; 2L IV NS, 30mg IV Toradol, and 4mg IV Zofran administered. 1055: I spoke with Dr. Whelan, radiologist, regarding patient's abdominal US. There are no acute findings. Patient's labs are also unremarkable. 1100: Reassessed patient and discussed laboratory and imaging studies.I have also prescribed her Zofran for nausea. Return precautions provided; patient is comfortable with this plan. 1131: Patient's diff is normal, she is safe to be discharged home. I have discussed these results with her and advised her to follow up with a GI physician. - Data Points Laboratory Results: Laboratory Results 05/24/18 10:15 05/24/18 10:15 05/24/18 05/24/18 05/24/18 10:58 10:23 10:15 WBC RBC Hgb POC Hgb 15.6 gm/dL gm/dL (12.6-16.3) Hct POC Hct 46 % % (38-47) MCV MCH MCHC RDW Plt Count MPV Neut % (Auto) Lymph % (Auto) Alexander % (Auto) Eos % (Auto) Baso % (Auto) Nucleat RBC Rel Count Absolute Neuts (auto) Absolute Lymphs (auto) Absolute Monos (auto) Absolute Eos (auto) Absolute Basos (auto) Absolute Nucleated RBC Immature Gran % Immature Gran # RBC/WBC/PLT Morphology Platelet Estimate POC Sodium 143 mEq/L mEq/L (135-145) Sodium POC Potassium 4.1 mEq/L mEq/L (3.3-5.0) Potassium POC Chloride 107 mEq/L mEq/L (97-110) Chloride Carbon Dioxide POC Total CO2 23 mEq/L mEq/L (22-31) Anion Gap POC BUN 4 mg/dL L mg/dL (7-23) BUN Creatinine POC Creatinine 0.7 mg/dL mg/dL (0.6-1.0) Estimated GFR Glucose POC Glucose 81 mg/dL mg/dL (70-100) Calcium Total Bilirubin Conjugated Bilirubin Unconjugated Bilirubin AST ALT Alkaline Phosphatase Total Protein Albumin Lipase Beta HCG, Qual NEGATIVE Urine Color YELLOW Urine Appearance CLEAR Urine pH 8.0 H (5.0-7.5) Ur Specific [place] 1.011 (1.002-1.030) Urine Protein NEGATIVE (NEGATIVE) Urine Ketones NEGATIVE (NEGATIVE) Urine Blood NEGATIVE (NEGATIVE) Urine Nitrate NEGATIVE (NEGATIVE) Urine Bilirubin NEGATIVE (NEGATIVE) Urine Urobilinogen NEGATIVE EU EU (0.2-1.0) Ur Leukocyte Esterase NEGATIVE (NEGATIVE) Urine RBC 1-3 /hpf /hpf (0-3) Urine WBC 1-3 /hpf /hpf (0-3) Ur Epithelial Cells TRACE /lpf /lpf (NONE-1+) Urine Glucose NEGATIVE (NEGATIVE) 05/24/18 05/24/18 10:15 10:15 WBC 2.47 10^3/uL L 10^3/uL (3.80-9.50) RBC 4.54 10^6/uL 10^6/uL (4.18-5.33) Hgb 15.6 g/dL g/dL (12.6-16.3) POC Hgb Hct 45.2 % % (38.0-47.0) POC Hct MCV 99.6 fL fL (81.5-99.8) MCH 34.4 pg H pg (27.9-34.1) MCHC 34.5 g/dL g/dL (32.4-36.7) RDW 12.1 % % (11.5-15.2) Plt Count 172 10^3/uL 10^3/uL (150-400) MPV 11.1 fL fL (8.7-11.7) Neut % (Auto) 18.7 % L % (39.3-74.2) Lymph % (Auto) 68.0 % H % (15.0-45.0) Alexander % (Auto) 10.1 % % (4.5-13.0) Eos % (Auto) 2.4 % % (0.6-7.6) Baso % (Auto) 0.4 % % (0.3-1.7) Nucleat RBC Rel Count 0.0 % % (0.0-0.2) Absolute Neuts (auto) 0.46 10^3/uL L 10^3/uL (1.70-6.50) Absolute Lymphs (auto) 1.68 10^3/uL 10^3/uL (1.00-3.00) Absolute Monos (auto) 0.25 10^3/uL L 10^3/uL (0.30-0.80) Absolute Eos (auto) 0.06 10^3/uL 10^3/uL (0.03-0.40) Absolute Basos (auto) 0.01 10^3/uL L 10^3/uL (0.02-0.10) Absolute Nucleated RBC 0.00 10^3/uL 10^3/uL (0-0.01) Immature Gran % 0.4 % % (0.0-1.1) Immature Gran # 0.01 10^3/uL 10^3/uL (0.00-0.10) RBC/WBC/PLT Morphology TNP Platelet Estimate TNP POC Sodium Sodium 138 mEq/L mEq/L (135-145) POC Potassium Potassium 4.4 mEq/L mEq/L (3.5-5.2) POC Chloride Chloride 111 mEq/L H mEq/L (97-110) Carbon Dioxide 20 mEq/l L mEq/l (22-31) POC Total CO2 Anion Gap 7 mEq/L mEq/L (6-14) POC BUN BUN 6 mg/dL L mg/dL (7-23) Creatinine 0.7 mg/dL mg/dL (0.6-1.0) POC Creatinine Estimated GFR > 60 Glucose 80 mg/dL mg/dL (70-100) POC Glucose Calcium 9.4 mg/dL mg/dL (8.5-10.4) Total Bilirubin 1.4 mg/dL mg/dL (0.1-1.4) Conjugated Bilirubin 0.2 mg/dL mg/dL (0.0-0.5) Unconjugated Bilirubin 1.2 mg/dL H mg/dL (0.0-1.1) AST 35 IU/L IU/L (14-46) ALT 32 IU/L IU/L (9-52) Alkaline Phosphatase 56 IU/L IU/L (38-126) Total Protein 7.1 g/dL g/dL (6.3-8.2) Albumin 4.4 g/dL g/dL (3.5-5.0) Lipase 99 IU/L IU/L (23-300) Beta HCG, Qual Urine Color Urine Appearance Urine pH Ur Specific [place] Urine Protein Urine Ketones Urine Blood Urine Nitrate Urine Bilirubin Urine Urobilinogen Ur Leukocyte Esterase Urine RBC Urine WBC Ur Epithelial Cells Urine Glucose Medications Given: Discontinued Medications Sodium Chloride (Ns) 1,000 mls @ 0 mls/hr IV EDNOW ONE; Wide Open PRN Reason: Protocol Stop: 05/24/18 10:02 Last Admin: 05/24/18 10:25 Dose: 1,000 mls Sodium Chloride (Ns) 1,000 mls @ 0 mls/hr IV EDNOW ONE; Wide Open PRN Reason: Protocol Stop: 05/24/18 10:02 Last Admin: 05/24/18 10:25 Dose: 1,000 mls Ketorolac Tromethamine (Toradol) 30 mg IVP EDNOW ONE Stop: 05/24/18 10:02 Last Admin: 05/24/18 10:26 Dose: 30 mg Ondansetron HCl (Zofran) 4 mg IVP EDNOW ONE Stop: 05/24/18 10:02 Last Admin: 05/24/18 10:26 Dose: 4 mg Point of Care Test Results: Chemistry 05/24/18 10:23 POC Sodium 143 mEq/L mEq/L (135-145) POC Potassium 4.1 mEq/L mEq/L (3.3-5.0) POC Chloride 107 mEq/L mEq/L (97-110) POC Total CO2 23 mEq/L mEq/L (22-31) POC BUN 4 mg/dL L mg/dL (7-23) POC Creatinine 0.7 mg/dL mg/dL (0.6-1.0) POC Glucose 81 mg/dL mg/dL (70-100) ISTAT H&H 05/24/18 10:23 POC Hgb 15.6 gm/dL gm/dL (12.6-16.3) POC Hct 46 % % (38-47) Departure - Departure Disposition: Home, Routine, Self-Care Clinical Impression: Acute gastroenteritis Condition: Good Instructions: Gastroenteritis (ED) Additional Instructions: 1. 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 2. Return to the Emergency Department for fever, chest pain, shortness of breath , increasing pain or other worsening of condition. 3. Take Zofran as prescribed for nausea. Referrals: GAMALIEL TO [Other] - As per Instructions August,Linda Montero MD [Medical Doctor] - As per Instructions Prescriptions: Ondansetron Odt [Zofran Odt 4 mg (*)] 4 mg PO Q4 PRN #10 tab PRN Reason: Nausea/Vomiting, Use 1st Report Scribed for: Mk Florentino Report Scribed by: Marianne Arteaga Date of Report: 05/24/18 Time of Report: 09:55
[2018-05-24] MEDS ORDERED: KETOROLAC 30 MG/1 ML SDV IVP ONE (10:01)
[2018-05-24] MEDS ORDERED: NS 1,000 ML IV ONE ×2 (10:01)
[2018-05-24] MEDS ORDERED: ONDANSETRON 4 MG/2 ML VIAL IVP ONE (10:01)
[2018-05-24 10:29] LABS: PLATELET COUNT 172 10^3/uL (150-400)
[2018-05-24 11:40] VITALS: BP 103/53
== END 2018-05-24 11:39 | disposition home or self-care (01) ==
DX: K52.9 Noninfective gastroenteritis and colitis, unspecified (principal); E86.9 Volume depletion, unspecified
CPT/HCPCS: 82435-PO; 82565-PO; 82947-PO; 84132-PO; 84295-PO; 84520-PO; 85014-ER; 96374; J1885; J2405

== ENCOUNTER 2018-05-25 11:15 | Emergency (ER) | payer MEDICAID ==
[2018-05-25] MEDS ORDERED: MAG HYDROX/AL HYDROX/SIMETH 30 ML UDCUP PO ONE (13:46)
[2018-05-25] MEDS ORDERED: HYOSCYAMINE SULFATE 0.125 MG TAB PO ONE (13:46)
[2018-05-25] MEDS ORDERED: LIDOCAINE 2% VISCOUS 15 ML UDCUP PO ONE (13:46)
[2018-05-25] MEDS ORDERED: NS 1,000 ML IV ONE (13:46)
--- NOTE | 2018-05-25 13:51 | EDPHY ---
H & P Stated Complaint: NAUSEA, SOB, FEELS FAINT AND DIZZY FOR 1.5 MOS Time Seen by Provider: 05/25/18 13:03 HPI/ROS: CHIEF COMPLAINT: Epigastric pain, vomiting HISTORY OF PRESENT ILLNESS: 22-year-old female presents with persistent epigastric pain and vomiting. Onset generalized abdominal pain 6 weeks ago. Seen in this emergency department and diagnosed with a probable ruptured ovarian cyst. Started to feel better, but then the pain and vomiting returned. Seen in this emergency department yesterday, abdominal ultrasound unremarkable. Today the pain is severe and aching. Associated with multiple episodes of vomiting. Unable to tolerate oral food for the past several days. Taking Zofran with some relief in nausea. REVIEW OF SYSTEMS: complete 10 point ROS reviewed and is negative except for the noted elements in the HPI - Personal History LMP (Females 10-55): 8-14 Days Ago Current Tetanus/Diphtheria Vaccine: Unsure Current Tetanus Diphtheria and Acellular Pertussis (TDAP): Unsure - Medical/Surgical History Hx Asthma: No Hx Chronic Respiratory Disease: No Hx Diabetes: No Hx Cardiac Disease: No Hx Renal Disease: No Hx Cirrhosis: No Hx Alcoholism: No Hx HIV/AIDS: No Hx Splenectomy or Spleen Trauma: No Other PMH: Lipoprotein A, migraines, ovarian cysts - Social History Smoking Status: Never smoked Alcohol Use: Sober Drug Use: None Additional Social History: Student at [employer] - Physical Exam Exam: General Appearance: Alert, pleasant, tearful at times Eyes: Pupils equal and round, no conjunctival pallor ENT, Mouth: Mucous membranes moist Neck: Normal inspection Respiratory: Lungs are clear to auscultation Cardiovascular: Regular rate and rhythm Gastrointestinal: Abdomen is soft, epigastric tenderness Neurological: A&O, nonfocal, normal gait Skin: Warm and dry Extremities: Normal inspection Psychiatric: Mood and affect normal Constitutional: Initial Vital Signs Temperature (C) 36.8 C 05/25/18 11:19 Heart Rate 65 05/25/18 11:19 Respiratory Rate 17 05/25/18 11:19 Blood Pressure 119/71 05/25/18 11:19 O2 Sat (%) 98 05/25/18 11:19 O2 Delivery Mode Room Air Allergies/Adverse Reactions: egg [eggs] Allergy (Intermediate, Verified 05/24/18 09:50) Hives acetazolamide [From Diamox Sequels] Allergy (Verified 05/24/18 09:50) cheese Allergy (Verified 05/24/18 09:50) topiramate [From Topamax] Allergy (Verified 05/24/18 09:50) Home Medications: Medication Instructions Recorded Effexor Xr 11/09/17 Epipen 0.3 MG 11/09/17 EPINEPHrine [Epipen 0.3 MG] 0.3 mg IM ONCE #2 syr 11/29/17 predniSONE 60 mg PO DAILY #9 tab 11/29/17 Ondansetron Odt [Zofran Odt 4 mg 4 mg PO Q4 PRN #10 tab 05/24/18 (*)] Pantoprazole Sodium [Protonix 40mg 40 mg PO DAILY #20 tab 05/25/18 (*)] Promethazine HCl [Phenergan 25mg 25 mg PO Q6 PRN #10 tab 05/25/18 (*)] Medical Decision Making ED Course/Re-evaluation: This patient presents with epigastric discomfort and vomiting. Abdominal exam is benign. A GI cocktail was given with complete relief in pain. Abdominal exam is soft and nontender after the GI cocktail. Laboratory tests discussed with the patient. Discussed with the patient, likely peptic ulcer disease. Will place on Protonix. She will also take Mylanta before meals and at bedtime. Suggest a bland diet. Follow up with PCP. She is arranging a follow- up visit with GI as an outpatient. Differential Diagnosis: Differential diagnosis includes though it is not limited to appendicitis, cholecystitis, diverticulitis, pyelonephritis, bowel perforation, small bowel obstruction. - Data Points Laboratory Results: Laboratory Results 05/25/18 13:53 05/25/18 13:53 05/25/18 05/25/18 05/25/18 13:53 13:53 13:53 WBC 2.97 10^3/uL L 10^3/uL (3.80-9.50) RBC 4.73 10^6/uL 10^6/uL (4.18-5.33) Hgb 16.5 g/dL H g/dL (12.6-16.3) Hct 48.2 % H % (38.0-47.0) MCV 101.9 fL H fL (81.5-99.8) MCH 34.9 pg H pg (27.9-34.1) MCHC 34.2 g/dL g/dL (32.4-36.7) RDW 11.9 % % (11.5-15.2) Plt Count 176 10^3/uL 10^3/uL (150-400) MPV 11.2 fL fL (8.7-11.7) Neut % (Auto) 25.3 % L % (39.3-74.2) Lymph % (Auto) 63.3 % H % (15.0-45.0) [place] % (Auto) 9.4 % % (4.5-13.0) Eos % (Auto) 1.3 % % (0.6-7.6) Baso % (Auto) 0.7 % % (0.3-1.7) Nucleat RBC Rel Count 0.0 % % (0.0-0.2) Absolute Neuts (auto) 0.75 10^3/uL L 10^3/uL (1.70-6.50) Absolute Lymphs (auto) 1.88 10^3/uL 10^3/uL (1.00-3.00) Absolute Monos (auto) 0.28 10^3/uL L 10^3/uL (0.30-0.80) Absolute Eos (auto) 0.04 10^3/uL 10^3/uL (0.03-0.40) Absolute Basos (auto) 0.02 10^3/uL 10^3/uL (0.02-0.10) Absolute Nucleated RBC 0.00 10^3/uL 10^3/uL (0-0.01) Immature Gran % 0.0 % % (0.0-1.1) Immature Gran # 0.00 10^3/uL 10^3/uL (0.00-0.10) RBC/WBC/PLT Morphology TNP Platelet Estimate TNP Sodium 140 mEq/L mEq/L (135-145) Potassium 4.1 mEq/L mEq/L (3.5-5.2) Chloride 106 mEq/L mEq/L (97-110) Carbon Dioxide 23 mEq/l mEq/l (22-31) Anion Gap 11 mEq/L mEq/L (6-14) BUN 5 mg/dL L mg/dL (7-23) Creatinine 0.7 mg/dL mg/dL (0.6-1.0) Estimated GFR > 60 Glucose 75 mg/dL mg/dL (70-100) Calcium 9.9 mg/dL mg/dL (8.5-10.4) Total Bilirubin 1.5 mg/dL H mg/dL (0.1-1.4) Conjugated Bilirubin 0.3 mg/dL mg/dL (0.0-0.5) Unconjugated Bilirubin 1.2 mg/dL H mg/dL (0.0-1.1) AST 25 IU/L IU/L (14-46) ALT 31 IU/L IU/L (9-52) Alkaline Phosphatase 58 IU/L IU/L (38-126) Total Protein 8.3 g/dL H g/dL (6.3-8.2) Albumin 5.1 g/dL H g/dL (3.5-5.0) Lipase 94 IU/L IU/L (23-300) Beta HCG, Qual NEGATIVE Urine Color Urine Appearance Urine pH Ur Specific [place] Urine Protein Urine Ketones Urine Blood Urine Nitrate Urine Bilirubin Urine Urobilinogen Ur Leukocyte Esterase Urine Glucose 05/25/18 13:00 WBC RBC Hgb Hct MCV MCH MCHC RDW Plt Count MPV Neut % (Auto) Lymph % (Auto) [place] % (Auto) Eos % (Auto) Baso % (Auto) Nucleat RBC Rel Count Absolute Neuts (auto) Absolute Lymphs (auto) Absolute Monos (auto) Absolute Eos (auto) Absolute Basos (auto) Absolute Nucleated RBC Immature Gran % Immature Gran # RBC/WBC/PLT Morphology Platelet Estimate Sodium Potassium Chloride Carbon Dioxide Anion Gap BUN Creatinine Estimated GFR Glucose Calcium Total Bilirubin Conjugated Bilirubin Unconjugated Bilirubin AST ALT Alkaline Phosphatase Total Protein Albumin Lipase Beta HCG, Qual Urine Color PALE YELLOW Urine Appearance CLEAR Urine pH 5.0 (5.0-7.5) Ur Specific [place] 1.005 (1.002-1.030) Urine Protein NEGATIVE (NEGATIVE) Urine Ketones NEGATIVE (NEGATIVE) Urine Blood NEGATIVE (NEGATIVE) Urine Nitrate NEGATIVE (NEGATIVE) Urine Bilirubin NEGATIVE (NEGATIVE) Urine Urobilinogen NEGATIVE EU EU (0.2-1.0) Ur Leukocyte Esterase NEGATIVE (NEGATIVE) Urine Glucose NEGATIVE (NEGATIVE) Medications Given: Discontinued Medications Al Hydroxide/Mg Hydroxide (Maalox Susp) 30 ml PO ONCE ONE Stop: 05/25/18 13:47 Last Admin: 05/25/18 13:55 Dose: 30 ml Hyoscyamine Sulfate (Levsin, Hyomax-Sl) 0.25 mg PO ONCE ONE Stop: 05/25/18 13:47 Last Admin: 05/25/18 13:55 Dose: 0.25 mg Sodium Chloride (Ns) 1,000 mls @ 0 mls/hr IV EDNOW ONE; Wide Open PRN Reason: Protocol Stop: 05/25/18 13:47 Last Admin: 05/25/18 13:55 Dose: 1,000 mls Lidocaine (Lidocaine 2% Viscous) 15 ml PO ONCE ONE Stop: 05/25/18 13:47 Last Admin: 05/25/18 13:55 Dose: 15 ml Pantoprazole Sodium (Protonix) 40 mg PO EDNOW ONE Stop: 05/25/18 15:19 Last Admin: 05/25/18 15:28 Dose: 40 mg Departure - Departure Disposition: Home, Routine, Self-Care Clinical Impression: Peptic ulcer disease Condition: Good Instructions: Peptic Ulcer (ED), Diet for Stomach Ulcers and Gastritis (ED) Additional Instructions: 1. Clear liquids for 24 hours. 2. Advance diet as tolerated. I suggest the BRAT diet to start: bananas, rice, applesauce and toast. 3. Take Mylanta 30 min prior to meals and at bedtime. 3. Return for worsening symptoms, persistent vomiting, abdominal pain, any concerns. Referrals: GAMALIEL TO [Other] - As per Instructions (Call to make an appointment. You should be seen in 1-2 days.) Prescriptions: Pantoprazole Sodium [Protonix 40mg (*)] 40 mg PO DAILY #20 tab Promethazine HCl [Phenergan 25mg (*)] 25 mg PO Q6 PRN #10 tab PRN Reason: nausea
[2018-05-25 14:13] LABS: PLATELET COUNT 176 10^3/uL (150-400)
--- NOTE | 2018-05-25 14:29 | ASMTCMCOM ---
CM Note CM Note Notes: Call to [facility] for follow up appointment with Dr. August. Blunger made outreach to Dr. Vazquez to determine if pt. can be worked into the schedule. She will call back when she has more information. The pt. stated that she would like to go home. CM to follow up with appointment information when received. Date Signed: 05/25/2018 02:28 PM Electronically Signed By:Viraj Todd LCSW
[2018-05-25] MEDS ORDERED: PANTOPRAZOLE SODIUM 40 MG TAB PO ONE (15:18)
[2018-05-25 15:28] VITALS: BP 116/84
--- NOTE | 2018-05-26 13:21 | ASMTCMCOM ---
CM Note CM Note Notes: Follow up CM note: This CM contacted Arlyn at [facility] and confirmed that patient was scheduled for an appointment today at 4:[address] Vazquez at the [place] office Date Signed: 05/26/2018 01:21 PM Electronically Signed By:Coby Cherry RN
== END 2018-05-25 15:30 | disposition home or self-care (01) ==
DX: K27.9 Peptic ulcer, site unspecified, unspecified as acute or chronic, without hemorrhage or perforation (principal); R11.10 Vomiting, unspecified; E86.9 Volume depletion, unspecified

== ENCOUNTER 2018-09-29 18:02 | Emergency (ER) | payer MEDICAID | END 2018-09-29 18:49 | disposition home or self-care (01) ==